=== PATIENT | male | born 1940 | race Caucasian/White ===

== ENCOUNTER 2024-02-02 10:54 | Emergency (ER) | payer OTHER, SELFPAY ==
[2024-02-02 10:59] VITALS: BP 114/79; PULSE 76; RESP 20; TEMP 36.6; O2SAT 98
--- NOTE | 2024-02-02 11:04 | ECG_ITS ---
Measurements Intervals [place] Rate: 73 P: 61 [place]: 202 QRS: 39 QRSD: 82 T: -83 QT: 388 QTc: 429 Interpretive Statements SINUS RHYTHM NONSPECIFIC ST & T-WAVE ABNORMALITY NO PREVIOUS ECG AVAILABLE FOR COMPARISON Electronically Signed On 02-02-2024 12:55:25 CDT by Ilana Chaney M.D.
[2024-02-02 11:41] LABS: Basophils Percent Auto 0.4 % (0.2-1.2); Eosinophils Absolute Auto 0.1 K/mm3 (0-0.3); Hematocrit 39.2 % (42.0-52.0); Hemoglobin 13.6 g/dL (14.0-18.0); Immature Granulocyte Absolute 0.03 K/mm3 (0.00-0.031); Immature Granulocyte Percent A 0.4 % (0-0.5); Lymphocytes Percent Auto 10.5 % (18.3-44.2); Mean Corpuscular HGB Conc 34.7 g/dl (32-36); Mean Corpuscular Volume 89.3 fl (80-100); Mean Platelet Volume 11.3 fl (7.4-10.4); Monocytes Absolute Auto 0.6 K/mm3 (0.1-0.6); Monocytes Percent Auto 7.3 % (2.6-8.5); Neutrophils Absolute Auto 6.1 K/mm3 (1.3-6.7); Neutrophils Percent Auto 80.4 % (45.5-73.1); Platelet Count Result 159 k/mm3 (150-375); Red Blood Count 4.39 M/mm3 (4.6-6.20); Red Cell Distribution Width 11.9 % (11.5-14.5); White Blood Count 7.6 K/mm3 (4.5-10.0)
[2024-02-02 11:48] VITALS: BP 112/65; BP 119/65; BP 96/67; PULSE 74; PULSE 80; PULSE 83
[2024-02-02 11:54] LABS: Alanine Aminotransferase 22 U/L (6-50); Alkaline Phosphatase 122 U/L (38-126); Anion Gap 7 mmol/L (4-12); Aspartate Amino Transferase 27 U/L (17-59); Bilirubin,Total 0.4 mg/dL (0.2-1.3); Blood Urea Nitrogen 22 mg/dL (9-20); Calcium 9.5 mg/dL (8.4-10.2); Carbon Dioxide 23 mmol/L (22-30); Chloride 107 mmol/L (98-107); Estimated CRCL calculation 39 ml/min; Estimated Glomerular Filt Rate 48; Glucose 168 mg/dL (65-110); Potassium 4.3 mmol/L (3.4-5.0); Sodium 137 mmol/L (137-145)
[2024-02-02] MEDS: SODIUM CHLORIDE 0.9% IV 1,000 ML 999 ML IV CONT (12:18)
[2024-02-02 12:20] VITALS: BP 111/89; PULSE 68; RESP 14; O2SAT 100
--- NOTE | 2024-02-02 12:56 | ED.DIZZY ---
HPI - Dizziness General Chief Complaint: Syncope Stated Complaint: dizzy Time Seen by Provider: 02/02/24 11:17 History of Present Illness HPI Narrative: Patient is an 83-year-old male who presents ER after having episodes dizziness. Worse when bending over and standing straight up. He gets lightheaded. It is not spinning. No nausea or vomiting. He had something similar when he had an episode of atrial fibrillation in the past. He is anticoagulated and compliant on medications. He is in a sinus rhythm here. No difficulty hearing. No fevers or chills or sweats. Does not believe he is dehydrated as he has been eating normally. Related Data Allergies Allergy/AdvReac Type Severity Reaction Status Date / Time Penicillins Allergy Mild Verified 03/31/11 11:25 Review of Systems Review of Systems: All systems reviewed & are unremarkable except as noted in HPI and below Constitutional: Constitutional: Reports no additional constitutional complaints ENT: Reports system reviewed and no additional complaints, except as documented Cardiovascular: Cardiovascular: Reports no additional cardiovascular complaints Respiratory: Respiratory: Reports no additional respiratory complaints Gastrointestinal: Gastrointestinal: Reports no additional gastrointestinal complaints Neurologic: Reports dizziness, Denies syncope, Denies headache(s), Denies focal weakness and Denies numbness PMFSH Past Medical History Medical History (Updated 02/02/24 @ 13:59 by Sherman Schwartz MD) Atrial fibrillation BPH (benign prostatic hyperplasia) Hyperlipidemia Exam Narrative: GENERAL: Well-appearing, well-nourished, and in no acute distress. HEAD: Normocephalic, atraumatic. EYES: PERRL and EOMI. ENT: Mucous membranes moist. normal TMs, there is cerumen impaction that was removed from left ear canal. NECK: Supple. CHEST: Clear to auscultation. No respiratory distress. HEART: Regular rate and rhythm. Normal peripheral pulses. ABDOMEN: Soft, nontender, nondistended. EXTREMITIES: Normal range of motion. No edema. SKIN: Warm, dry, no rash. NEURO: Alert and oriented x3. PSYCH: Normal mood and affect. Course Course Emergency Course: patient feels improved after IV fluid. Orthostatics normalized. Discharge home. Vital Signs Vital signs: Vital Signs Temperature 98 F 02/02/24 10:59 Pulse Rate 76 02/02/24 10:59 Respiratory Rate 20 02/02/24 10:59 Blood Pressure 114/79 02/02/24 10:59 Pulse Oximetry 98 02/02/24 10:59 Temperature 98 F 02/02/24 10:59 Pulse Rate 68 02/02/24 13:44 Respiratory Rate 14 02/02/24 12:20 Blood Pressure 122/72 02/02/24 13:44 Pulse Oximetry 100 02/02/24 12:20 MDM - Dizziness Lab Data 02/02/24 11:32 02/02/24 11:32 Labs: Lab Results 02/02/24 Range/Units 11:32 WBC 7.6 (4.5-10.0) K/mm3 RBC 4.39 L (4.6-6.20) M/mm3 Hgb 13.6 L (14.0-18.0) g/dL Hct 39.2 L (42.0-52.0) % MCV 89.3 (80-100) fl MCH 31.0 (26-34) pg MCHC 34.7 (32-36) g/dl RDW 11.9 (11.5-14.5) % Plt Count 159 (150-375) k/mm3 MPV 11.3 H (7.4-10.4) fl Immature Gran % (Auto) 0.4 (0-0.5) % Neut % (Auto) 80.4 H (45.5-73.1) % Lymph % (Auto) 10.5 L (18.3-44.2) % [place] % (Auto) 7.3 (2.6-8.5) % Eos % (Auto) 1.0 (0-4.4) % Baso % (Auto) 0.4 (0.2-1.2) % Lymph # (Auto) 0.80 L (0.9-3.2) K/mm3 [place] # (Auto) 0.6 (0.1-0.6) K/mm3 Eos # (Auto) 0.1 (0-0.3) K/mm3 Baso # (Auto) 0.0 (0.0-0.1) K/mm3 Abs Immat Gran (auto) 0.03 (0.00-0.031) K/mm3 Absolute Neuts (auto) 6.1 (1.3-6.7) K/mm3 Absolute Nucleated RBC 0.000 (0.0-0.012) K/mm3 Nucleated RBC % 0.0 (0.0-0.2) % Sodium 137 (137-145) mmol/L Potassium 4.3 (3.4-5.0) mmol/L Chloride 107 (98-107) mmol/L Carbon Dioxide 23 (22-30) mmol/L Anion Gap 7 (4-12) mmol/L BUN 22 H (9-20) mg/dL Creatinine 1.40 H (0.7-1.3) mg/dL Estim Creat Clear Calc 39 ml/min Es
[2024-02-02 13:42] VITALS: BP 126/72; PULSE 64
[2024-02-02 13:43] VITALS: BP 118/72; PULSE 69
[2024-02-02 13:44] VITALS: BP 122/72; PULSE 68
== END 2024-02-02 14:06 | disposition home or self-care (01) ==
PROVIDERS: Emergency Provider Emergency Medicine
DX: R42 Dizziness and giddiness (principal); I48.91 Unspecified atrial fibrillation; E78.5 Hyperlipidemia, unspecified; N40.0 Benign prostatic hyperplasia without lower urinary tract symptoms; R94.31 Abnormal electrocardiogram [ECG] [EKG]
CPT/HCPCS: 36415; 80053; 85025; 93005; 96360; 99284; J7030

== ENCOUNTER 2024-06-11 22:13 | Observation (INO) | payer OTHER, SELFPAY ==
--- NOTE | ~2024-06-11 | XR_ITS ---
EXAMINATION: XR chest 2V Exam Date/Time: 06/11/2024 23:05 CDT HISTORY: unwell WEAKNESS HX OF AFIB Comparison: None. RESULT: Lines, tubes, and devices: None. Lungs and pleura: Senescent changes, calcified left lower lobe granuloma, otherwise clear. Cardiomediastinal silhouette: Unremarkable. Other: No acute osseous or upper abdominal finding. IMPRESSION: No acute cardiopulmonary process. Reviewed, dictated and finalized at location K.
--- NOTE | 2024-06-11 22:48 | ECG_ITS ---
Test Date: 2024-06-11 22:50:25 Measurements Intervals [place] Rate: 108 P: 0 [place]: 0 QRS: 45 QRSD: 74 T: -41 QT: 309 QTc: 416 Interpretive Statements ATRIAL FIBRILLATION WITH RAPID VENTRICULAR RESPONSE NONSPECIFIC ST & T-WAVE ABNORMALITY No previous ECG available for comparison Electronically Signed On 06-12-2024 11:58:26 CDT by Ilana Chaney M.D.
[2024-06-11 22:53] VITALS: BP 142/87; PULSE 48; RESP 16; TEMP 36.8; O2SAT 99
[2024-06-11 22:54] VITALS: PULSE 108; PULSE 48
--- NOTE | 2024-06-11 22:54 | PC.NURSE ---
Pt HR ranging from high 30s to 1teens. Documented in VS. Known hx of afib. EDP Dr. Connell made aware.
[2024-06-11 23:13] LABS: Add Urine Microscopic? YES; Appearance Urine Turbid (Clear); Bacteria Urine 4+ /hpf; Bilirubin Urine Negative (Negative); Blood Urine 1+ (Negative); Color Urine Yellow (Yellow); Glucose Urine UA Negative (Negative); Ketones Urine Negative (Negative); Leukocyte Esterase Ur 3+ LEU/UL (Negative); Nitrate Urine Positive (Negative); Non Pathogenic Casts 0-2; Protein Urine Negative (Negative); RBC Urine 0-2 /hpf (0-2); Specific Grav Ur 1.013 (1.001-1.035); Squamous Epithelial Cell Urine None Seen /hpf (Few); WBC Urine >100 /hpf (0-3); pH Urine 6.5 (5.0-9.0)
[2024-06-11 23:16] LABS: Basophils Percent Auto 0.3 % (0.2-1.2); Eosinophils Absolute Auto 0.2 K/mm3 (0-0.3); Eosinophils Percent Auto 2.8 % (0-4.4); Hematocrit 37.8 % (42.0-52.0); Hemoglobin 12.9 g/dL (14.0-18.0); Immature Granulocyte Absolute 0.02 K/mm3 (0.00-0.031); Immature Granulocyte Percent A 0.3 % (0-0.5); Lymphocytes Absolute Auto 1.64 K/mm3 (0.9-3.2); Lymphocytes Percent Auto 23.9 % (18.3-44.2); Mean Corpuscular HGB Conc 34.1 g/dl (32-36); Mean Corpuscular Volume 90.9 fl (80-100); Mean Platelet Volume 11.4 fl (7.4-10.4); Monocytes Absolute Auto 0.8 K/mm3 (0.1-0.6); Monocytes Percent Auto 10.9 % (2.6-8.5); Neutrophils Absolute Auto 4.3 K/mm3 (1.3-6.7); Neutrophils Percent Auto 61.8 % (45.5-73.1); Platelet Count Result 156 k/mm3 (150-375); Red Blood Count 4.16 M/mm3 (4.6-6.20); Red Cell Distribution Width 12.1 % (11.5-14.5); White Blood Count 6.9 K/mm3 (4.5-10.0)
[2024-06-11 23:27] LABS: INR 1.2; Prothrombin Time 15.3 Seconds (11.1-14.7)
[2024-06-11 23:28] LABS: Partial Thromboplastin Time 27.7 Seconds (22.3-36.8)
[2024-06-11 23:30] LABS: Alanine Aminotransferase 20 U/L (6-50); Alkaline Phosphatase 140 U/L (38-126); Anion Gap 9 mmol/L (4-12); Aspartate Amino Transferase 28 U/L (17-59); Bilirubin,Total 0.4 mg/dL (0.2-1.3); Blood Urea Nitrogen 26 mg/dL (9-20); Calcium 8.6 mg/dL (8.4-10.2); Carbon Dioxide 23 mmol/L (22-30); Chloride 108 mmol/L (98-107); Estimated CRCL calculation 46 ml/min; Estimated Glomerular Filt Rate 58; Glucose 134 mg/dL (65-110); Lipase 135 U/L (23-300); Potassium 3.9 mmol/L (3.4-5.0); Sodium 140 mmol/L (137-145)
[2024-06-11 23:42] LABS: Troponin I 0.014 ng/mL (0.000-0.034)
[2024-06-12] VITALS (27 sets, daily range): BP systolic 117–157; BP diastolic 65–113; PULSE 63–142; RESP 15–24; TEMP 36.1–36.8; O2SAT 95–100
[2024-06-12] MEDS: cefTRIAXone 2 GM/NS 100 ML 2 GM/100 ML BAG IVPB (00:37)
[2024-06-12] MEDS: METOPROLOL TARTRATE INJ 5 MG/5 ML VIAL IV PUSH ×2 (00:37→03:41)
[2024-06-12] MEDS: LACTATED RINGERS 1,000 ML 999 ML IV CONT ×2 (00:59→05:24)
--- NOTE | 2024-06-12 02:33 | ED.RECABL ---
HPI - Recheck/Abnormal Lab/Rx General Chief Complaint: Recheck/Abnormal Lab/Rx Stated Complaint: high blood pressure, dont feel good Time Seen by Provider: 06/12/24 00:05 History of Present Illness HPI narrative: Patient states that he has not been feeling very well today, denies any pain anywhere, but he did check his blood pressure and looked high so came into the hospital. He does have history of AFib and is already on anticoagulation and rate limiting medication. Related Data Allergies Allergy/AdvReac Type Severity Reaction Status Date / Time Penicillins Allergy Mild Verified 03/31/11 11:25 Review of Systems Review of Systems: All systems reviewed & are unremarkable except as noted in HPI and below [facility] Past Medical History Medical History (Updated 06/12/24 @ 00:33 by Brittni Connell MD) Atrial fibrillation BPH (benign prostatic hyperplasia) Hyperlipidemia Exam Narrative: EXAMINATION OF ORGAN SYSTEMS/BODY AREAS: Constitutional: Vital signs per nursing GENERAL: Appears tired HEAD: Normal with no signs of head trauma. EYES: EOMI, conjunctiva normal ENT: Hearing grossly intact LUNGS: Nonlabored breathing. HEART: Irregular; tachycardic ABD: [Soft], [nontender to palpation] EXT: Normal range of motion SKIN: [No rashes or lesions.] NEURO: [Alert and oriented x 3. No gross focal sensory or strength deficits.] PSYCH: Normal affect Course Vital Signs Vital signs: Vital Signs Temperature 98.2 F 06/11/24 22:53 Pulse Rate 48 L 06/11/24 22:53 Respiratory Rate 16 06/11/24 22:53 Blood Pressure 142/87 H 06/11/24 22:53 Pulse Oximetry 99 06/11/24 22:53 Oxygen Delivery Room Air 06/11/24 22:53 Temperature 98.2 F 06/11/24 22:53 Pulse Rate 134 H 06/12/24 03:41 Respiratory Rate 18 06/12/24 03:38 Blood Pressure 154/113 H 06/12/24 03:38 Pulse Oximetry 98 06/12/24 03:38 Oxygen Delivery Room Air 06/11/24 22:53 MDM - Recheck/Abnormal Lab/Rx MDM Narrative Medical decision making narrative: Patient presenting with not feeling well, on exam he is in AFib with RVR, does appear tired. I did place the patient on time a tray when he was brought back from triage and he was having heart rate in the 140s. He is started on IV fluids and given a dose of IV metoprolol which did immediately improved his heart rate to the 80s. Labs showing urinary tract infection which I suspect may be why he does not feel well and why he is in AFib with RVR, he is given a dose of antibiotics, I do feel he should be admitted at this time and patient agreeable to this plan. Hospitalist agreeable to admission. Repeat EKG at 3:29 a.m. on my independent interpretation shows atrial flutter with rate 88, normal QRS and QTC and axis, no ST elevations. Lab Data 06/11/24 23:07 06/11/24 23:07 Labs: Lab Results 06/11/24 06/11/24 Range/Units 23:03 23:07 WBC 6.9 (4.5-10.0) K/mm3 RBC 4.16 L (4.6-6.20) M/mm3 Hgb 12.9 L (14.0-18.0) g/dL Hct 37.8 L (42.0-52.0) % MCV 90.9 (80-100) fl MCH 31.0 (26-34) pg MCHC 34.1 (32-36) g/dl RDW 12.1 (11.5-14.5) % Plt Count 156 (150-375) k/mm3 MPV 11.4 H (7.4-10.4) fl Immature Gran % (Auto) 0.3 (0-0.5) % Neut % (Auto) 61.8 (45.5-73.1) % Lymph % (Auto) 23.9 (18.3-44.2) % [place] % (Auto) 10.9 H (2.6-8.5) % Eos % (Auto) 2.8 (0-4.4) % Baso % (Auto) 0.3 (0.2-1.2) % Lymph # (Auto) 1.64 (0.9-3.2) K/mm3 [place] # (Auto) 0.8 H (0.1-0.6) K/mm3 Eos # (Auto) 0.2 (0-0.3) K/mm3 Baso # (Auto) 0.0 (0.0-0.1) K/mm3 Abs Immat Gran (auto) 0.02 (0.00-0.031) K/mm3 Absolute Neuts (auto) 4.3 (1.3-6.7) K/mm3 Absolute Nucleated RBC 0.000 (0.0-0.012) K/mm3 Nucleated RBC % 0.0 (0.0-0.2) % PT 15.3 H (11.1-14.7) Seconds INR 1.2 APTT 27.7 (22.3-36.8) Seconds Sodium 140 (137-145) mmol/L Potassium 3.9 (3.4-5.0) mmol/L Chloride 108 H (98-107) mmol/L Carbon
--- NOTE | 2024-06-12 03:29 | ECG_ITS ---
Test Date: 2024-06-12 03:29:07 Measurements Intervals [place] Rate: 88 P: 0 [place]: 0 QRS: 50 QRSD: 80 T: -41 QT: 344 QTc: 418 Interpretive Statements ATRIAL FIBRILLATION NONSPECIFIC ST & T-WAVE ABNORMALITY Compared to ECG 06/11/2024 22:50:25 NO SIGNIFICANT CHANGES Electronically Signed On 06-14-2024 09:45:47 CDT by Ilana Chaney M.D.
[2024-06-12] MEDS: METOPROLOL TARTRATE 25 MG TABLET PO (03:41)
--- NOTE | 2024-06-12 03:56 | ADMGEN ---
This patient, Parviz Barger, was admitted to IMU Room 200-01. Patient/family oriented to hospital policies and general routines including ID bracelet, bed and alarms, visiting hours, pain management, procedures, bathroom and other care routines, personal items, smoking policy, room service/diet, and visiting hours. Information on how to activate the Rapid Response Team has been discussed. Patient/Family are encouraged to report perceived risks to care and to ask questions if they do not understand what they are told or what they should do.
[2024-06-12 04:24] LABS: Troponin I 0.018 ng/mL (0.000-0.034)
[2024-06-12 05:48] LABS: Troponin I 0.018 ng/mL (0.000-0.034)
--- NOTE | 2024-06-12 07:15 | PM.IMHP ---
H&P: HPI History of Present Illness Date/Time: 06/12/24 07:15 Chief Complaint: Patient is an 83-year-old male past medical history of AFib presented to the ER due to high blood pressure and weakness. During the examination patient was oriented x3. Patient reports that he has AFib and he is on a rate control medication but was not able to recall also patient is on anticoagulant Eliquis 5 mg b.i.d.. Analysis shows positive for nitrite and leukocyte esterase. Even the patient denies any symptoms of dysuria fever chills or flank pain his weakness might be due to from the infection from the urinary tract. Patient has been started empirically on ceftriaxone pending urine culture. Today patient was added metoprolol 12.5 mg b.i.d. for his rate control and we will follow up with his heart rate and his blood pressure. Review of Systems Review of Systems: All systems reviewed & are unremarkable except as noted in HPI and below PMFSH Past Medical History Medical History (Updated 06/12/24 @ 00:33 by Brittni Connell MD) Atrial fibrillation BPH (benign prostatic hyperplasia) Hyperlipidemia Family History Family History (Updated 06/12/24 @ 04:21 by Jazmyn Yi RN) Mother Brain aneurysm Father COPD (chronic obstructive pulmonary disease) Social History Social History Smoking status: Never smoker Alcohol intake: never Substance use: never Do You Feel Safe in your Home?: Yes Lack of Transportation: No Lack of Food: Never True Current Housing: I Have Housing Concerned About Future Housing: No Difficulty Paying Gas/Electric Bills: No Difficulty Paying for Meds: No Currently Unemployed: No Education: Grade School Difficulty w/ Childcare or Family Care: No Spiritual care concerns: No Meds Home Medications and Allergies Home Medications Medication Instructions Recorded Confirmed Type apixaban 5 mg tablet (Eliquis) 5 mg PO BID 06/12/24 06/12/24 History atorvastatin 40 mg tablet 40 mg PO DAILY 06/12/24 06/12/24 History tamsulosin 0.4 mg capsule 0.4 mg PO DAILY 06/12/24 06/12/24 History Allergies Allergy/AdvReac Type Severity Reaction Status Date / Time Penicillins Allergy Mild Verified 03/31/11 11:25 Vital Signs Vital Signs - 24 hr 06/11/24 22:53 06/11/24 22:54 06/11/24 22:54 Temperature 98.2 F Pulse Rate 48 L 48 L 108 H Respiratory Rate 16 Blood Pressure 142/87 H Pulse Oximetry 99 Oxygen Delivery Room Air 06/12/24 00:22 06/12/24 00:37 06/12/24 00:50 Temperature Pulse Rate 142 H 121 H 92 Respiratory Rate 20 19 Blood Pressure 132/109 H 153/86 H Pulse Oximetry 100 98 Oxygen Delivery 06/12/24 02:02 06/12/24 00:23 06/12/24 00:45 Temperature Pulse Rate 82 126 H 92 Respiratory Rate 17 Blood Pressure 153/89 H Pulse Oximetry 98 Oxygen Delivery 06/12/24 02:00 06/12/24 02:55 06/12/24 03:21 Temperature Pulse Rate 75 71 112 H Respiratory Rate 15 Blood Pressure 150/85 H Pulse Oximetry 98 Oxygen Delivery 06/12/24 03:21 06/12/24 03:28 06/12/24 03:41 Temperature Pulse Rate 112 H 121 H 134 H Respiratory Rate 19 17 Blood Pressure 146/93 H 146/93 H Pulse Oximetry 99 99 Oxygen Delivery 06/12/24 03:41 06/12/24 03:38 06/12/24 04:00 Temperature 97 F L Pulse Rate 134 H 134 H 118 H Respiratory Rate 18 18 Blood Pressure 154/113 H 131/96 H Pulse Oximetry 98 100 Oxygen Delivery 06/12/24 04:00 06/12/24 04:00 06/12/24 06:27 Temperature Pulse Rate 118 H 112 H 74 Respiratory Rate 18 Blood Pressure Pulse Oximetry 100 Oxygen Delivery Room Air Exam Narrative: EXAMINATION OF ORGAN SYSTEMS/BODY AREAS: Constitutional: Vital signs per nursing GENERAL: Appears tired HEAD: Normal with no signs of head trauma. EYES: EOMI, conjunctiva normal ENT: Hearing grossly intact LUNGS: Nonlabored breathing. HEART: Irregular; tachycardic ABD: [Soft], [nontender
[2024-06-12] MEDS: ATORVASTATIN 40 MG TABLET PO (09:28)
[2024-06-12] MEDS: METOPROLOL TARTRATE 12.5 MG TABLET PO ×2 (09:28→20:15)
[2024-06-12] MEDS: APIXABAN 5 MG TABLET PO ×2 (09:28→20:15)
[2024-06-12] MEDS: TAMSULOSIN HCL 0.4 MG CAPSULE PO (09:28)
[2024-06-13] VITALS (10 sets, daily range): BP systolic 118–138; BP diastolic 64–79; PULSE 55–70; RESP 16–20; TEMP 36.3–36.7; O2SAT 98–100
[2024-06-13 04:18] LABS: Hemoglobin 11.8 g/dL (14.0-18.0); Mean Corpuscular HGB Conc 34.7 g/dl (32-36); Mean Corpuscular Hemoglobin 31.6 pg (26-34); Mean Corpuscular Volume 90.9 fl (80-100); Mean Platelet Volume 11.9 fl (7.4-10.4); Platelet Count Result 145 k/mm3 (150-375); Red Blood Count 3.74 M/mm3 (4.6-6.20); Red Cell Distribution Width 12.1 % (11.5-14.5); White Blood Count 7.7 K/mm3 (4.5-10.0)
[2024-06-13 04:29] LABS: Alanine Aminotransferase 17 U/L (6-50); Albumin Level 3.2 g/dL (3.5-5.1); Alkaline Phosphatase 105 U/L (38-126); Anion Gap 7 mmol/L (4-12); Aspartate Amino Transferase 19 U/L (17-59); Bilirubin,Total 0.4 mg/dL (0.2-1.3); Blood Urea Nitrogen 19 mg/dL (9-20); Calcium 8.4 mg/dL (8.4-10.2); Carbon Dioxide 24 mmol/L (22-30); Chloride 107 mmol/L (98-107); Estimated CRCL calculation 54 ml/min; Estimated Glomerular Filt Rate > 60; Glucose 104 mg/dL (65-110); Potassium 3.7 mmol/L (3.4-5.0); Sodium 138 mmol/L (137-145)
--- NOTE | 2024-06-13 07:29 | PC.NURSE ---
Bedside shift report. Denies any needs at this time. compliance monitor remains on and functioning at this time. No acute distress noted. Plan of care discussed, including medications. Denies questions at this time, verbalizes understanding.
[2024-06-13] MEDS: ATORVASTATIN 40 MG TABLET PO (08:28)
[2024-06-13] MEDS: METOPROLOL TARTRATE 12.5 MG TABLET PO (08:28)
[2024-06-13] MEDS: TAMSULOSIN HCL 0.4 MG CAPSULE PO (08:28)
[2024-06-13] MEDS: APIXABAN 5 MG TABLET PO (08:35)
--- NOTE | 2024-06-13 13:39 | PM.DS ---
DS: Admitting Diagnosis Discharge Date 06/13/24 Admitting Diagnosis High blood pressure and weakness DS: Discharge Diagnosis Discharge Diagnosis (1) Atrial fibrillation with RVR: Code(s): I48.91 - Unspecified atrial fibrillation Status: Acute (2) Acute UTI: Code(s): N39.0 - Urinary tract infection, site not specified Status: Acute DS: Summary Hospital Course Reason for hospitalization: 83yo male with pAFib and BPH here for hihg BP and weakness. Please see H&P for details. Hospital Course: Patient noted to have AFib with RVR on admission. He was started on IV fluids and given metoprolol IV once with improvement. EKG showed AFib with RVR (108) with nonspecific ST and T wave changes. CXR was clear. WBC and platelet cont normal. Hgb mildly low at 13. BUN 26 and Cr 1.2 that improved with IV fluids. Troponin negative x 3. TSH normal. UA is consistent with UTI. UCx collected. Rocephin started. UCx grew klebsiella that was relatively jacome-sensitive. he converted to normal sinus. Oral metoprolol started. He overall did well and was able to be discharged on 06/13/24. Status at Discharge Cognitive/behavioral status at discharge: stable Time Spent with Patient Time attestation: Total time spent providing and/or coordinating discharge services: 34 minutes Time spent: Greater than 30 minutes Exam Narrative: AF 98.1 124/79 56 16 98% ra Gen - NARD Chest - CTA bilaterally, nml RR. more protuberant right clavicle without erythema or pain CV - RRR S1/S2. Tele showing NSR Abd - Soft, NT/ND, Positive BS Ext - No pedal edema. known right ankle deformity. 2+ DP bilaterally. Psych - Nml mood and affect Skin - Warm and dry DS: Data Data Completed and Pending Labs on day of discharge: Labs from last 24 hours 06/13/24 03:30 WBC 7.7 RBC 3.74 L Hgb 11.8 L Hct 34.0 L MCV 90.9 MCH 31.6 MCHC 34.7 RDW 12.1 Plt Count 145 L MPV 11.9 H Sodium 138 Potassium 3.7 Chloride 107 Carbon Dioxide 24 Anion Gap 7 BUN 19 Creatinine 1.00 Estim Creat Clear Calc 54 Estimated GFR > 60 Glucose 104 Calcium 8.4 Total Bilirubin 0.4 AST 19 ALT 17 Alkaline Phosphatase 105 Total Protein 6.0 L Albumin 3.2 L TSH (Reflex) 2.350 Discharge Plan Discharge Attending physician on discharge: Marino Valadez Discharging Clinician: Marino Valadez Anticipated Discharge Date/Time: 06/13/24 13:50 Patient Disposition: Home, Self-Care Activity: as tolerated Diet: heart healthy Discharge Instructions: Check blood pressure 1 to 2 times a day. Record and bring into your doctor for review. Call your doctor if your blood pressure is greater than 180/110 or less than 90/45. Please complete your antibiotic course even if you are starting to feel well. Start the antibiotic on 06/14/24 and take it every 12 hours for 3 days. Take precautions to avoid falls. Rise slowly from a lying or sitting position. Pause before standing or walking. Contact your doctor or call 911 and come to the Emergency Room if you have fevers, weakness, urinary symptoms or other worrisome symptoms. Avoid NSAIDs (ibuprofen, naproxen, Aleve). Tylenol is safe to take. Follow-up with your primary care provider in 1-2 weeks. Please call for appointment. Thank you for using [facility] for your health care needs. Patient Instructions: Antibiotic Form, Apixaban (By mouth) Stand Alone Forms: General Discharge Information Follow-up/Referrals: UNKNOWN,DOCTOR [Primary Care Provider] - Call for Appointment Discharge Medications: New ciprofloxacin HCl [Cipro] 250 mg tablet 250 mg PO Q12H Qty: 6 0RF Rx Instructions: Start on 06/14/24. metoprolol succinate 25 mg tablet extended release 24 hr 25 mg PO DAILY Qty: 30 1RF Continued atorvastatin 40 mg tablet 40 mg PO DAILY tamsulosin 0.4 mg capsule 0.4 mg PO DAILY Eliquis 5 mg tablet
== END 2024-06-13 14:50 | disposition home or self-care (01) ==
LOC: ANHED 06-12 00:41 → ANHIMU 06-12 04:34
PROVIDERS: General Practice; Admitting Provider Internal Medicine; Emergency Provider Emergency Medicine; Visit Provider Internal Medicine
DX: I48.91 Unspecified atrial fibrillation (principal); N39.0 Urinary tract infection, site not specified; B96.1 Klebsiella pneumoniae [K. pneumoniae] as the cause of diseases classified elsewhere; I10 Essential (primary) hypertension; E78.5 Hyperlipidemia, unspecified; N40.0 Benign prostatic hyperplasia without lower urinary tract symptoms; Z79.01 Long term (current) use of anticoagulants
CPT/HCPCS: 36415; 71046; 80053; 81001; 83690; 84443; 84484; 85025; 85027; 85610; 85730; 87077; 87086; 87088; 87186; 93005; 96361; 96365; 96375; 96376; 99285; A9270; G0378; J0696; J7120

== ENCOUNTER 2025-01-16 13:57 | Emergency (ER) | payer SELFPAY ==
[2025-01-16 14:07] VITALS: BP 108/60; PULSE 61; RESP 16; TEMP 36.4; O2SAT 98
--- OUTSIDE RECORDS SUMMARY | 2025-01-16 15:35 | XMS_ITS | Clinical Summary ---
Author Organization [facility] [address] Address [address] [place] [address] Care Team Providers Care Tube Maker Name Role Phone Sanchez Cueva MD Primary Care Provider [phone] Allergies Active Allergy Reactions Criticality Noted Date Comments Penicillin Rash Low 07/27/2017 Medications atorvastatin (LIPITOR) 40 mg tablet Take 1 Tablet (40 mg) by mouth daily at bedtime. 30 Tablet 3 Active tamsulosin (FLOMAX) 0.4 mg capsule TAKE 1 CAPSULE BY MOUTH EVERY DAY 30 MINUTES AFTER THE SAME MEAL 3 Active multivit-min/FA/l ycopen/lutein (CENTRUM SILVER MEN ORAL) Take by mouth. Active ciprofloxacin HCl (CIPRO) 250 mg tablet Take 250 mg by mouth 2 times daily. Active metoprolol succinate (TOPROL XL) 25 mg Extended Release 24 hour tablet Take 1 Tablet by mouth daily. 4 Active amiodarone (CORDARONE) 200 mg tablet Take 1 Tablet (200 mg) by mouth daily. 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 01/06/2023 Atrial flutter with rapid ventricular response 1 11/12/2021 Atrial fibrillation 09/12/2022 Overview (09/13/2022): Added automatically from request for surgery [id number] Immunizations Immunization Administration Dates Next Due (PREVNAR 13)(6 WKS UP) PNEUM OCOCCAL CONJUGATE (PCV13) 0.5 ML, IM 01/22/2015 (SHINGRIX)(50 YRS UP) ZOSTER VACCINE RECOMBINANT, 0.5 ML, IM 01/07/2016 INFLUENZA VACCINE QUADRIVALENT 6 MOS UP PF IM Influenza Vaccine Tri Split 4+ Im 09/04/2018 Family History Medical History Relation Name Comments Emphysema Father Unknown Maternal Grandfather Unknown Maternal Grandmother Cancer Mother brain tumor Stroke Mother Unknown Paternal Grandfather Unknown Paternal Grandmother Healthy Sister Breast Cancer Neg Hx Colon Cancer Neg Hx Relation Name Status Comments Father Maternal Grandfather Maternal Grandmother Mother cerebral aneury sm Paternal Grandfather Paternal Grandmother Sister Social History Tobacco Use Types Packs/Day Years Used Date Smoking Tobacco: Never Smokeless Tobacco: Never Tobacco Cessation:Counseling Given: Not Answered Alcohol Use Standard Drinks/Week Comments Not Currently 0 (1 standard drink = 0.6 oz pur e alcohol) Feeling Safe Answer Date Recorded Are you in a relationship wi th someone who hurts you emotionally and/or physically? 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 Not on file Not on file Not on file Last Filed Vital Signs Vital Sign Reading Time Taken Comments Blood Pressure 130/78 06/15/2024 2:35 PM CDT Pulse 52 06/15/2024 2:35 PM CDT Temperature 36.9 C (98.4 F) 05/17/2023 9:48 AM CDT Respiratory Rate 20 05/17/2023 9:48 AM CDT Oxygen Saturation 99% 05/17/2023 9:48 AM CDT Inhaled Oxygen Concentration - - Weight 89.4 kg (197 lb) 06/15/2024 2:35 PM CDT Height 182.9 cm (6') 01/27/2024 1:07 PM CDT Body Mass Index 26.72 01/27/2024 1:07 PM CDT Plan of Treatment Health Maintenance Due Date Last Done Comments DTAP/TDAP/TD VACCINES (1 - Tdap) 1959 RSV VACCINE (60+ or ) (1 - 1-dose 75+ series) 2015 PNEUMOCOCCAL VACCINE 50+ YEA RS (2 of 2 - PPSV23) 01/23/2016 01/22/2015 ZOSTER VACCINE (2 of 2) 03/03/2016 01/07/2016 INFLUENZA VACCINE (#1) 2024 09/04/2018, 2016 [place]) Preventative Visit/Annual Wellness Visit 10/31/2024 04/18/2024, 04/13/2023, 02/17/2022, Additional history exists COLORECTAL SCREENING Discontinued 03/05/2019, 03/05/2019, 03/05/2019, Additional history exists Colorectal Cancer Screening Discontinued FIT-DNA Q 3 years Discontinued FIT/FOBT Q 1 year Discontinued Flex Sig/CT Colonography Q 5 years Discontinued Procedures Procedure Name Priority Date/Time Associated Diagnosis Comments COLONOSCOPY REPORT 03/05/2019 10 :49 AM CDT from Last 3 Months or Most Recently Relevant to Health Maintenance Results * COLONOSCOPY REPORT (03/05/2019 10:49 AM CDT) Narrative Procedure Note Wendy Scott MD - 03/05/2019 10:49 AM CDT [facility] Endoscopy Patient Name: Parviz Barger Procedure Date: 03/05/2019 Date of : 1940 Admit Type: Outpatient Attending MD: Wendy Scott MD Procedure: Colonoscopy Indications: Screening for colorectal malignant neoplasm, This is the patient's first colonoscopy Providers: Wendy Scott MD Referring MD: Sanchez Cueva MD Medicines: Monitored Anesthesia Care Complications: No immediate complications. Procedure: Informed consent was obtained for the procedure, including moderate sedation after risks were discussed. Based on the pre-procedure assessment, including review of the patient's medical history, medications, allergies, and review of systems, the patient was deemed to be an appropriate candidate for sedation. A timeout was performed. Continuous ECG monitoring, pulse oximetry, blood pressure monitoring, and direct observation were performed. The Colonoscope was introduced through the anus and advanced to the terminal ileum. The colonoscopy was performed without difficulty. The patient tolerated the procedure well. The quality of the bowel preparation was good. Findings: The terminal ileum appeared normal. The colon (entire examined portion) appeared normal. Internal hemorrhoids were found during retroflexion. The hemorrhoids were Grade I (internal hemorrhoids that do not prolapse). Impression: - The examined portion of the ileum was normal. - The entire examined colon is normal. - Internal hemorrhoids. - No specimens collected. Recommendation: - Patient has a contact number available for emergencies. The signs and symptoms of potential delayed complications were discussed with the patient. Return to normal activities tomorrow. Written discharge instructions were provided to the patient. - Repeat colonoscopy in 10 years for screening purposes. Procedure Code(s): --- Professional --- 14175, Colonoscopy, flexible; diagnostic, including collection of specimen(s) by brushing or washing, when performed (separate procedure) CPT copyright 2016 [employer]. All rights reserved. The codes documented in this report are preliminary and upon long term care administrator review may be revised to meet current compliance requirements. Wendy Scott MD 03/05/2019 10:48:57 AM This report has been signed electronically. Number of Addenda: [id number] [place] [address] Wendy Scott MD GI PROCEDURE ORDERABLES Final Re sult from Last 3 Months or Most Recently Relevant to Health Maintenance Insurance [place] [id number] Advance Directives For more information, please contact: [phone] * Full Code (Latest Code Status on File) Date Activated Date Inactivated Comments 01/07/2023 12:04 AM 01/10/2023 7:53 PM * Full Code Date Activated Date Inactivated Comments 09/27/2022 4:03 PM 09/27/2022 10:13 PM * Full Code Date Activated Date Inactivated Comments 09/12/2022 4:52 PM 09/14/2022 5:33 PM Care Teams Tube Maker Relationship Specialty [place] [address] [address] [address] PCP - General Family Practice 02/26/19
--- OUTSIDE RECORDS SUMMARY | 2025-01-16 15:35 | XMS_ITS | Continuity of Care Document ---
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 Name Role Phone Sanchez Cueva MD Unavailable Unavailable Allergies, Adverse Reactions, Alerts Substance Reaction Status Criticality PENICILLIN Active No Information Medications Medication Instructions Dosage Effective Dates (start - stop) Status Comments trazodone 50 mg tablet take 1 tablet by oral route every day at bedtime 50 MG - Active atorvastatin 40 mg tablet TAKE 1 TABLET BY MOUTH EVERY DAY AT BEDTIME - Active Shingrix (PF) 50 mcg/0.5 mL intramuscular suspension, kit inject 0.5 milliliter by intramuscular route once 50 MCG - Active amiodarone 200 mg tablet take 1 tablet by oral route once per day - Active Arexvy (PF) 120 mcg/0.5 mL IM suspension inject 0.5 milliliter by intramuscular route once 120 MCG - Active Eliquis 5 mg tablet take 1 tablet by ora l route 2 times every day 5 MG - Active Centrum Silver Men 300 mcg-600 mcg-300 mcg tablet 1 tab po QD - Active Procedures Procedure Date OFFICE [id number] BODY MASS INDEX DOCD SYST BP LT 130 MM HG DIAST BP < 80 MM HG Admin influenza virus vac FLU VACC PRSV FREE INC ANTIG COMPREHEN METABOLIC PANEL CMP HEMOGLOBIN A1C HGA1C, GLYCO LIPID PANEL ROUTINE VENIPUNCTURE FALL RISK ASSESSMENT DOC'D PRES/ABSN URINE INCON ASSESS PREVENTATIVE-EST: 65 & OVER BODY MASS INDEX DOCD SYST BP LT 130 MM HG DIAST BP < 80 MM HG Pt inelig neg scrn depres OFFICE [id number] BODY MASS INDEX DOCD SYST BP LT 130 MM HG DIAST BP < 80 MM HG CBC, INC PLATELETS AND DIFFERENTIAL COMPREHEN METABOLIC PANEL CMP 3 HEMOGLOBIN A1C HGA1C, GLYCO LIPID PANEL ROUTINE VENIPUNCTURE FALL RISK ASSESSMENT DOC'D PRES/ABSN URINE INCON ASSESS Pt inelig neg scrn depres Pt inelig neg scrn depres BODY MASS INDEX DOCD SYST BP LT 130 MM HG DIAST BP < 80 MM HG PREVENTATIVE-EST: 65 & OVER [facility] MED/CURRENT MED MERGE Pt inelig neg scrn depres Pt inelig neg scrn depres OFFICE [id number] BODY MASS INDEX DOCD SYST BP LT 130 MM HG DIAST BP < 80 MM HG DSCHRG MED/CURRENT MED MERGE COMPREHEN METABOLIC PANEL CMP 2 HEMOGLOBIN A1C HGA1C, GLYCO LIPID PANEL ROUTINE VENIPUNCTURE OFFICE [id number] BODY MASS INDEX DOCD SYST BP LT 130 MM HG DIAST BP < 80 MM HG DSCHRG MED/CURRENT MED MERGE Transitional Care- First 7 Days Of Disch arge BODY MASS INDEX DOCD SYST BP LT 130 MM HG DIAST BP < 80 MM HG X-RAY SPINE, CERVICAL, 2 Or 3 VIEWS FALL RISK ASSESSMENT DOC'D PRES/ABSN URINE INCON ASSESS Pt inelig neg scrn depres PREVENTATIVE-EST: 65 & OVER BODY MASS INDEX DOCD SYST BP LT 130 MM HG DIAST BP < 80 MM HG CBC, INC PLATELETS AND DIFFERENTIAL COMPREHEN METABOLIC PANEL CMP HEMOGLOBIN A1C HGA1C, GLYCO LIPID PANEL ROUTINE VENIPUNCTURE PSA, TOTAL, SCREENING MEDICARE ONLY OFFICE [id number] BODY MASS INDEX DOCD SYST BP LT 130 MM HG DIAST BP < 80 MM HG OFFICE [id number] BODY MASS INDEX DOCD FALL RISK ASSESSMENT DOC'D PRES/ABSN URINE INCON ASSESS Pt inelig neg scrn depres OFFICE [id number]-[id number] BODY MASS INDEX DOCD SYST BP LT 130 MM HG DIAST BP < 80 MM HG OFFICE [id number]-AGT-[id number] BODY MASS INDEX DOCD SYST BP LT 130 MM HG DIAST BP < 80 MM HG FALL RISK ASSESSMENT DOC'D PRES/ABSN URINE INCON ASSESS Pt inelig neg scrn depres OFFICE [id number] BODY MASS INDEX DOCD SYST BP >= 140 MM HG6 IT DIAST BP 80-89 MM HG Admin influenza virus vac FLU VAC NO PRSV 4 JESS, 0.5mL DOSAGE URINALYSIS, DIPSTICK (UA) - Office Lab O OFFICE [id number] BODY MASS INDEX DOCD SYST BP LT 130 MM HG DIAST BP < 80 MM HG Advance Directives Directive Yes / No Effective Date File Name Life Support Not Answered N/A N/A Intubation Not Answered N/A N/A Antibiotics Not Answered N/A N/A IV Fluid Support Not Answered N/A N/A Tube Feed Not Answered N/A N/A Other Directive N/A N/A WARNING:The information contained in this section is historical and is provided for information only and does not constitute a legal document or any assurance that the information is still accurate. Please verify the information with the leach of the legal document before using it for clinical purposes. Encounters Encounter Description Practice Location Reason(s) For Visit Diagnoses Date Provider Providers Copied on Encounter [facility], [address], [place], [place], [address] , tel: [phone] [facility] Primary [facility] Paroxysmal atrial flutter [address] An[address] [place] [address], [id number] , [place]. tel: [phone] OFFICE [id number]-GFE-USU PAUL [facility], [address], [place], [place], [address] , [place] tel: [phone] [facility] med management (chief complaint) Chronic a-fibMixed hypercholesterole pierre and hypertriglyceride miaChronic systolic heart failurePre-diabet esLong term current use of anticoagulantHist ory of CVA (cerebrovascular accident) 4 Anay Bradford. [address] [facility], [address], [id number] , . tel: [phone] Referring Provider: Sanchez Lopes, [address] [place] [address], [address] . tel:[phone] [facility], [address], [place], [place], [address] , tel: [phone] [facility] Atrial fibrillation, unspecified type 4 Anay Rodriguez [address] [place] [address], [id number] , . tel: [phone] [facility], [address], [place], [place], [address] , tel: [phone] [facility] No Information 4 Anay Bradford. [address] [place] [address], [id number] , [place]. tel: [phone] [facility], [address], [place], [place], [address] , tel: [phone] [facility] Services Mixed hyperlipidemia 4 Anay Rodriguez [address] [place] [address], [id number] , [place]. tel: [phone] Referring Provider: Sanchez Lopes, [address] [place] [address], [address] . 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 [address] [place] [address], [id number] , [place]. tel: [phone] Referring Provider: Sanchez Lopes, [address] [place] [address], [address] . tel:[phone] [facility], [address], [place], [place], [address] , tel: [phone] [facility] Atrial fibrillation, unspecified type 4 Anay Bradford. [address] [place] [address], [id number] , . tel: [phone] OFFICE RULPR-GDI-YSS PAUL [facility], [address], [place], [place], [address] , tel: [phone] [facility] Care [facility] med management (chief complaint) Chronic a-fibHistory of CVA (cerebrovascular accident)Chronic systolic heart failureLong term current use of anticoagulantMixe d hypercholesterole pierre and hypertriglyceride miaEssential hypertension 3 Anay Bradford. [address] [place] [address], [id number] , . tel: [phone] Referring Provider: Sanchez Lopes, [address] [place] [address], [address] . tel:[phone] [facility], [address] [facility], [place], [place], [address] , tel: [phone] [facility] Services Mixed hyperlipidemia 3 Anay Bradford. [address] [place] [address], [id number] , . tel: [phone] Referring Provider: Sanchez Lopes, [address] [place] [address], [address] . tel:[phone] PREVENTATIVE- EST: 65 & OVER [facility], [address] [facility], [place], [place], [address] , tel: [phone] [facility] Patient encounter (chief complaint)p reventive exam (chief complaint) Body mass index [BMI] 26.0-26.9, adultEssential hypertensionChron ic a-fibMixed hypercholesterole pierre and hypertriglyceride miaPrediabetesRec ent urinary tract infectionLong term current use of anticoagulantAnnu al physical examHistory of fallingEncounter for screening for other disorderEncounter for screening for depressionEncount er for examination of blood pressure without abnormal findings 3 Anay Bradford. [address] [place] [address], [address] [place] [address] , . tel: [phone] Referring Provider: Sanchez Lopes, [address] [place] [address], [address] [place] [address] . tel:[phone] [facility], [address], [place], [address] , tel: [phone] [facility] History of CVA (cerebrovascular accident) 3 Anay Bradford. [address] [place] [address], [id number] , . tel: [phone] OFFICE WJBLI-SEB-GJM PAUL [facility], [address], [place], [address] , tel: [phone] [facility] Hospital Follow-Up (chief complaint) Paroxysmal atrial flutterHistory of CVA (cerebrovascular accident)Body mass index [BMI] 26.0-26.9, adult 3 Moshe Sage. [address] [place] [address], [id number] , . tel: [phone] Referring Provider: Sanchez Lopes, [address] [place] [address], [address] . tel:[phone] [facility], [address], [address] , tel: [phone] Care Management No Information 3 Anay Bradford. [address] [place] [address], [id number] , . tel: [phone] Referring Provider: Sanchez Lopes, [address] [place] [address], [address] . tel:[phone] [facility], [address], [place], [place], [address] , tel: [phone] [facility] Atrial flutter, unspecified type 3 Anay Bradford. [address] [place] [address], [address], [id number] , [place]. tel: [phone] [facility], [address], [place], [place], [address] , tel: [phone] [facility]patient Services Mixed hyperlipidemia 2 Anay Bradford. [address] [place] [address], [address], [id number] , [place]. tel: [phone] Referring Provider: Sanchez Lopes, [address] [place] [address], [address] . tel:[phone] OFFICE FWHYL-TWF-QCV PAUL [facility], [address] [place] [address], [id number] , tel: [phone] [facility] Primary [facility] Patient encounter (chief complaint) Chronic systolic heart failurePrediabete sMixed hypercholesterole pierre and hypertriglyceride miaEssential hypertensionChron ic a-fibLong term current use of anticoagulant 2 Anay Bradford. [address] [place] [address], [address], [id number] , [place]. tel: [phone] Referring Provider: Sanchez Lopes, [address] [place] [address], [address] . tel:[phone] Transitional Care- First 7 Days Of Discharge [facility], [address], [place], [place], [address] , tel: [phone] [facility] Patient encounter (chief complaint) Atrial flutter, unspecified typeAtrial fibrillation status post cardioversionPosi tive blood culture 2 Anay Bradford. [address] [place] [address], [address], [id number] , . tel: [phone] Referring Provider: Sanchez Lopes, [address] [place] [address], [address] . tel:[phone] [employer] [facility], [address], [place], [place], [address] , tel: [phone] [facility] Atrial flutter, unspecified type 2 Anay Rodriguez [address] [place] [address], [address], [id number] , . tel: [phone] [employer] [facility], [address], [place], [place], [address] , tel: [phone] [facility] Cervicalgia 2 Anay Rodriguez [address] [place] [address], [address], [id number] , [place]. tel: [phone] Referring Provider: Sanchez Lopes, [address] [place] [address], [address] . tel:[phone] PREVENTATIVE- EST: 65 & OVER [facility], [address] [place] [address], [id number] , tel: [phone] [facility] preventive exam (chief complaint) Body mass index [BMI] 28.0-28.9, adultCervical painAnnual physical examEssential hypertensionMixed hypercholesterole pierre and hypertriglyceride miaPrediabetes 2 Anay Rodriguez [address] [place] [address], [address], [id number] , [place]. tel: [phone] Referring Provider: Sanchez Lopes, [address] [place] [address], [address] . tel:[phone] [employer], [address], [place], [place], [address] , tel: [phone] [facility] Prediabetes Jul-0 1 Anay Rodriguez [address] [place] [address], [address], [id number] , . tel: [phone] Referring Provider: Sanchez Lopes, [address] [place] [address], [address] . tel:[phone] OFFICE JGQCG-FXN-LNN [facility], [address], [place], [place], [address] , tel: [phone] [facility] med management (chief complaint) Pre-diabetesMixed hypercholesterole pierre and hypertriglyceride miaEssential hypertensionScree lincoln PSA (prostate specific antigen) 1 Anay Bradford. [address] [place] [address], [address], [id number] , . tel: [phone] Referring Provider: Sanchez Lopes, [address] [place] [address], [address] . tel:[phone] OFFICE GVGBK-ERU-XYX ANDCHI [facility], [address] [facility], [place], [place], [address] , tel: [phone] [facility] med management (chief complaint)a cute problem (chief complaint) Herpes zoster without complication 1 Anay Rodriguez [address] [place] [address], [address], [id number] , . tel: [phone] Referring Provider: Sanchez Lopes, [address] [place] [address], [address] . tel:[phone] OFFICE JDALH-GAO-HIA [facility], [address] [facility], [place], [place], [address] , tel: [phone] [facility] med management (chief complaint) Body mass index (BMI) 27.0-27.9, adultMixed hypercholesterole pierre and hypertriglyceride miaEssential hypertensionPre-d iabetesChronic insomniaBPH loc w/o ur obs/LUTS 1 Anay Rodriguez [address] [place] [address], [address], [id number] , . tel: [phone] Referring Provider: Sanchez Lopes, [address] [place] [address], [address] . tel:[phone] [facility], [address], [place], [place], [address] , tel: [phone] [facility] No Information 0 Anay Bradford. [address] [place] [address], [address], [id number] , . tel: [phone] OFFICE SGERO-TQB-GUN [facility], [address] [facility], [place], [place], [address] , tel: [phone] [facility] med management (chief complaint) Body mass index (BMI) 26.0-26.9, adultPre-diabetes Screening PSA (prostate specific antigen)Mixed hypercholesterole pierre and hypertriglyceride miaEssential hypertensionBPH loc w/o ur obs/LUTS 0 Anay Bradford. [address] [place] [address], [id number] , . tel: [phone] Referring Provider: Sanchez Lopes, [address] [place] [address], [address] . tel:[phone] OFFICE IDENK-CWX-AEP ANDCHI [facility], [address] [facility], [place], [place], [address] , tel: [phone] [facility] Dysuria (chief complaint) DysuriaBPH loc w/o ur obs/LUTS 0 Anay Bradford. [address] [place] [address], [id number] , . tel: [phone] Referring Provider: Sanchez Lopes, [address] [place] [address], [address] . tel:[phone] OFFICE MLYRR-UAD-VZZ [facility], [address], [place], [place], [address] , tel: [phone] [facility] med management (chief complaint) Body mass index (BMI) 27.0-27.9, adultMalodorous urinePre-hyperten sionPre-diabetesB PH loc w/o ur obs/LUTSChronic insomnia 9 Anay Bradford. [address] [place] [address], [address], [id number] , . tel: [phone] Referring Provider: Sanchez Lopes, [address] [place] [address], [place], [address] . tel:[phone] [facility], [address] [facility], [place], [place], [address] , tel: [phone] [facility] med management (chief complaint) BPH loc w/o ur obs/LUTSPre-diabe tesPre-hypertensi onFrequency of micturition 9 Anay Bradford. [address] [place] [address], [address], [id number] , [place]. tel: [phone] Referring Provider: Sanchez Lopes, [address] [place] [address], [address] . tel:[phone] [facility], [address] [facility], [place], [address] , [place] tel: [phone] [facility] Qhd-qjcsjhewVyk-d ypertensionBPH loc w/o ur obs/LUTSAnnual physical exam 8 Anay Bradford. [address] [place] [address], [address], [id number] , [place]. tel: [phone] Referring Provider: Sanchez Lopes, [address] [place] [address], [address] . tel:[phone] [facility], [address] [place] [address], [id number] , tel: [phone] [facility] Pre-hypertensionP re-diabetesD[facility]in [facility] 8 Moshe Sage. [address] [place] [address], [id number] , . tel: [phone] Referring Provider: Sanchez Lopes, [address] [place] [address], [place], [address] . tel:[phone] [facility], [address], [place], [place], [address] , [place] tel: [phone] [facility] Dizziness 201 8 Moshe Sage. [address] [place] [address], [id number] , . tel: [phone] Referring Provider: Sanchez Lopes, [address] [place] [address], [place], [address] . 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) COVID19 Vaccine, 0.3mL per dose, 2 doses, administered 21 days apart administered Note: [facility]: Other Registry Pfizer-BioNTech COVID19 Vaccine, 0.3mL per dose, 2 doses, administered 21 days apart administered Source: Source Unspe cified Pfizer-BioNTech COVID19 Vaccine, 0.3mL per dose, 2 doses, administered 21 days apart administered Source: Source Unspe cified Fluzone High-Dose, high dose , preservative free administered Note: [facility] ; Source: Other Provider Fluzone Quad, preservative free, split virus, 0.5mL dosage administered Source: New Immunization Record Pneumococcal polysaccharide PPV23 administered Source: New Immuniza tion Record Fluzone Quad, split virus, 0.5mL dosage administered Source: New Immuniza tion Record Zoster administered Source: Source Unspecified Pneumococcal conjugate PCV 13 administere d Source: Source Unspecified Payers Payer name Insurance type Covered constitution party ID Authoriza tion(s) [employer] MB [id number] [employer] MB [id number] HUMANA MDCR PPO MB [id number] [employer] MDCR PPO MB [id number] [employer] MDCR PPO MB [id number] Social History Type Description Quantity Date Captured Comments Alcohol Use Details Unknown Caffeine Use Details Unknown Tobacco Use Status No Information Smoking Status No Information Sex Male Sexual Orientation Straight or heterosexual Gender Identity Male Chief Complaint And Reason For Visit No Information Reason For Referral Reason For Referral No Information Plan Of Treatment Date Type Action Status Goal Dietary manageme nt education, guidance, and counseling completed Goal Dietary manageme nt education, guidance, and counseling completed Goal Dietary manageme nt education, guidance, and counseling completed Goal Dietary manageme nt education, guidance, and counseling completed Goal Dietary manageme nt education, guidance, and counseling completed Goal Dietary manageme nt education, guidance, and counseling completed Goal Dietary manageme nt education, guidance, and counseling completed Referral Referred To: [place] [address] [facility]
[address] [place], [phone] Ordered: Referrals: Neurology. Dudley Mcdaniels MD. Evaluation/diagnostic/treatment - Level 3 Appointment date/timeframe: 02/21/2023 ordered Referral Referred To: [place] [id number] [facility]
[address] [place], [place], [phone] Ordered: Referrals: Cardiology. Randolph Cristina MD. Evaluation/diagnostic/treatment - Level 3 Appointment date/timeframe: 12/17/2022 ordered Referral Referred To: Randolph Cristina [address] [place], [place], [phone] Ordered: Referrals: Cardiology. Randolph Cristina. Evaluation/diagnostic/treatment - Level 3 Appointment date/timeframe: 09/27/2022 ordered Referral Ordered: X-RAY SPINE, CERVICAL, 2 Or 3 VIEWS ordered Appointment Parviz Barger BOOKED History Of Present Illness Encounter Date Complaint History Of Prese nt Illness med management Here for follow up on chronic medical conditions.Chronic a-fib Controlled VR, asxMixed hypercholesterolemia Advised on hypercholesterolemia. Watch diet, stay active.Chronic systolic heart failure Patient is stable with current med, denies ill effects, reports good compliance.Pre-diabetesdiscussed diet and exerciseLong term current use of anticoagulantno bleedingHistory of CVA (cerebrovascular accident)asx preventive exam Men's preventive visit. Patient is on a healthy diet. The patient has no weight gain/loss. Marital status: . Concern(s)/Requests Detail: Here for CPE. Relevant history is negative for tobacco use, passive vaping exposure, alcohol use. med management Here for follow up on chronic medical conditions.Chronic a-fib controlled rateHistory of CVA (cerebrovascular accident)asxChronic systolic heart failurePatient is stable with current med, denies ill effects, reports good compliance.no bleeding on anticoagulantsMixed hypercholesterolemiaAdvised on hypercholesterolemia. Watch diet, stay active.Essential hypertension Advised to continue current medications. Monitor BP regularly. Advised on DASH diet and regular exercises as natural ways to help lower blood pressure. Patient encounter Here for follo w up on chronic medical conditions.Essential hypertensionNormotensive on current txChronic a-fib Controlled VR. On BT - had hematuria and w/u showed UTI - seen at [facility] ED then [facility] - received abx which cleared sx. Mixed hypercholesterolemiaOn statin, no issues with usePrediabetesAware, watching diet better now preventive exam Men's preventive visit. Patient is on a healthy diet. The patient has no weight gain/loss. Marital status: . Concern(s)/Requests Detail: Here for CPE, med issues. Relevant history is negative for tobacco use, passive vaping exposure, alcohol use. Hospital Follow-Up The patient w as seen today for a hospital follow- up visit. Details regarding this most recent admission include: 82 y/o M here to f/u from [facility] 01/10/23Patient reported to hospital due to blurred vision and NAVARRETE. Found to have imaging consistent w/ CVA right parieto-occipital region. He had been prescribed Eliquis for paroxysmal afib; however, there was concern he was taking medication regularly. Cardiology, Dr. Cristina, was consulted and patient dx w/ aflutter - started on amiodarone and converted to NSR. Today, patient denies any residual sx and is doing well. He has not yet made his f/u appts w/ cardiology and neurology. He is taking his Eliquis regularly and aware of increased risk of CVA if he is not compliant. Patient encounter Here for follo w up on chronic medical conditions.Chronic systolic heart failure Asymptomatic now. Breathing at baseline, no CPPrediabetesWeight is stable, eating healthyMixed hypercholesterolemia Advised on hypercholesterolemia. Watch diet, stay active.Essential hypertensionNormotensive on current medAfib, asx, not feeling any symptoms. Patient encounter Reviewed hospi yamileth notes including testing and lab work up. Medications reconciled with patient. All questions answered to patient's satisfaction.Bruno exhausted and ended up going to the ED and was found to be in aflutter. Cardioversion done and started on Eliquis and Metoprolol. Thought to have UTI but UA was normal. Blood cultures were done and one in 4 bottles ended up being positive for G neg coccobacilli and was reported to the office today. He is currently not on any antibiotic. preventive exam Men's preventive visit. Patient is on a healthy diet. The patient has no weight gain/loss. Marital status: . Concern(s)/Requests Detail: Here for CPE. Tingling on left neck x 2 months. Relevant history is negative for tobacco use, passive vaping exposure, alcohol use. med management Here for follow up on chronic medical conditions.Essential hypertension Advised to continue current medications. Monitor BP regularly. Advised on DASH diet and regular exercises as natural ways to help lower blood pressure.Mixed hypercholesterolemia Advised on hypercholesterolemia. Watch diet, stay active. Continue current treatment.Pre-diabetes Discussed diet and exercise med management acute problem Chief complaint: rash.Symptoms started 1 days ago; are mild; occur constantly; are stable. noted rash on left buttock after his shower yesterday. Denies itching, burning. med management Here for follow up on chronic medical conditions.Essential hypertension Blood pressure control should be less than 130/80 on most occasions. Monitoring is important to see trends. Advised logging BP.Low salt diet is very helpful along with regular cardiovascular exercises, adequate water intake and appropriate restful sleep as these have shown to naturally help decrease BP. Blood tests should be done at least once yearly to see effects of hypertension such as possible deterioration of kidney function as well as to monitor effects of medications.Good blood pressure control is needed to avoid and reduce potential end-organ damage.Patient verbalized understanding.Mixed hypercholesterolemia Advised on hypercholesterolemia. Watch diet, stay active.BPH Tamsulosin causing occasional dizziness. Likely orthostatic hypotension. Advised to take time getting up and get his bearings before going. Hydrate well. Benefitting well from use of med so he does not want to stop med.Pre-diabetesDiscussed diet and exerciseChronic insomnia Discussed good sleep hygiene med management BPH Flomax has h elped significantly. denies ill effectsEssential hypertension Monitor BP regularly. Advised on DASH diet and regular exercises as natural ways to help lower blood pressure.Mixed hypercholesterolemia Advised on hypercholesterolemia. Watch diet, stay active.Pre-diabetes recheck A1C, he is doing good with diet and exercise Dysuria Reports dysuria ongoing intermittently x 1 month. States also has frequency, hesitancy, nocturia and incontinence. Previously was on Flomax but he self d/cd this several months ago. Did not put two and two together but noted worsening symptoms from 6 months ago. No fever or chills. Reports some hematuria as well, unable to give urine. med management Here for follow up on chronic medical conditions.Malodorous urineno UTI, advised on adequate hydrationPre-hypertension BP good. Monitor periodicallyPre-diabetesReviewed BW, WNL. Advised on healthy eating habits.BPH Not bothersome.Chronic insomnia Advised on trying melatonin. Call with updates PRN. med management Here for follow up on chronic medical conditions.BPHgetting nocturia and frequency, Med discussed. Rx sentFrequency of micturitionUA negative, hydrate well.Pre-diabetes discussed diet and exercisePre-hypertension Monitor BP regularly. Advised on DASH diet and regular exercises as natural ways to help lower blood pressure. Functional Status Date Functional Assessmen t No Information Instructions Date Instruction Additional Infor caroline asx Related to Histo ry of CVA (cerebrovascular accident) Advised on hyperchol esterolemia. Watch diet, stay active. Related to Mixed hypercholesterolemia and hypertriglyceridemia no bleeding Related to alf current use of anticoagulant discussed diet and exercise Rela jean-pierre to Pre-diabetes Controlled VR Related to Chron ic a-fib Patient is stable wi th current med, denies ill effects, reports good compliance. 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 Explained current BMI and goal BMI and ways to reach goal Body Mass index discussed. Explained current BMI and goal BMI and ways to reach goal Related to Body mass index [BMI] 26.0-26.9, adult Controlled VR Related to Chron ic a-fib diet and exercise discussed Rela jean-pierre to Pre-diabetes Advised on hyperchol esterolemia. Watch diet, stay active. Related to Mixed hypercholesterolemia and hypertriglyceridemia Patient is stable wi th current med, denies ill effects, reports good compliance. Related to Chronic systolic heart failure stopped Flomax. 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 Immunization and recommended screenings reviewed with patient Related to Annual physical exam Dietary management e ducation, guidance, and counseling Related to Body mass index (BMI) 26.0-26.9, adult Advised to continue current medications. Monitor BP regularly. Advised on DASH diet and regular exercises as natural ways to help lower blood pressure. Related to Essential hypertension Advised on hyperchol esterolemia. Watch diet, stay active. Related to Mixed hypercholesterolemia and hypertriglyceridemia Patient is stable wi th current med, denies ill effects, reports good compliance. Related to Chronic systolic heart failure no bleeding Related to alf current use of anticoagulant asx Related to Histo ry of CVA (cerebrovascular accident) controlled rate, asx Related to Chronic a-fib Preventive care disc ussed. Immunization and recommended screenings reviewed with patient Related to Annual physical exam Body Mass index disc ussed. Explained current BMI and goal BMI and ways to reach goal Body Mass index discussed. Explained current BMI and goal BMI and ways to reach goal Related to Body mass index [BMI] 26.0-26.9, adult completing abx, tracy turia has cleared Related to Recent urinary tract infection recent hematuria lik geneva compounded by UTI. 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 Monitor BP regularly. Advised on DASH diet and regular exercises as natural ways to help lower blood pressure. Related to Essential hypertension Advised on hyperchol esterolemia. Watch diet, stay active. Related to Mixed hypercholesterolemia and hypertriglyceridemia Controlled VR Related to Chron ic a-fib Dietary management e ducation, guidance, and counseling Related to Body mass index (BMI) 26.0-26.9, adult Regular rhythm today in officeTolerating amiodarone wellContinue Charisse crain/ Dr. Ny [facility] Electrophysiology - [id number] [facility] [id number] [facility] [place], [place] [address]K[place]: Related to Paroxysmal atrial flutter No residual symptoms Continue Charisse crain/ Dr. 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 Monitor BP regularly. Advised on DASH diet and regular exercises as natural ways to help lower blood pressure. Related to Essential hypertension recheck A1C. Weight is stable, eating healthy Related to Prediabetes Advised on hyperchol esterolemia. Watch diet, stay active. Related to Mixed hypercholesterolemia and hypertriglyceridemia Breathing at baseline, no CP Rel ated to Chronic systolic heart failure 1 out of 4 bottles f rom recent hospitalization grew G neg coccobacilli. Discussed and will tx with oral abx. Related to Positive blood culture On Eliquis and Metop rolol, seeing Dr. Cristina Related to Atrial fibrillation status post cardioversion In NSR now, Successf ul cardioversion - placed on Eliquis and Metoprolol and tolerating. Will see Dr. Cristina next week. Related to Atrial flutter, unspecified type Body Mass index disc ussed. Explained current BMI and goal BMI and ways to reach goal Body Mass index discussed. Explained current BMI and goal BMI and ways to reach goal Related to Body mass index [BMI] 28.0-28.9, adult Get Xray, more than likely arthritic in nature. NSAIDS OTC PRN discussed Related to Cervical pain Advised to continue current medications. Monitor BP regularly. Advised on DASH diet and regular exercises as natural ways to help lower blood pressure. Related to Essential hypertension Advised on hyperchol esterolemia. Watch diet, stay active. Continue current treatment. Related to Mixed hypercholesterolemia and hypertriglyceridemia Preventive care disc ussed. Immunization and recommended screenings reviewed with patient Related to Annual physical exam Discussed diet and exercise Rela jean-pierre to Prediabetes Dietary management e ducation, guidance, and counseling Related to Body mass index (BMI) 28.0-28.9, adult Urinary Incontinence Prescribed activity/ exercise education Related to Body mass index (BMI) 28.0-28.9, adult Fall Risk Prevention Discussed diet and exercise Rela jean-pierre to Pre-diabetes Advised on hyperchol esterolemia. Watch diet, stay active. Continue current treatment. Related to Mixed hypercholesterolemia and hypertriglyceridemia check PSA with BW Related to Scr eening PSA (prostate specific antigen) Advised to continue current medications. Monitor BP regularly. Advised on DASH diet and regular exercises as natural ways to help lower blood pressure. Related to Essential hypertension Rx Valtrex, avoid ma nipulation. Discussed and verbalized understanding. Related to Herpes zoster without complication Tamsulosin causing o ccasional dizziness. Likely orthostatic hypotension. Advised to take time getting up and get his bearings before going. Hydrate well. Benefitting well from use of med so he does not want to stop med. Related to BPH loc w/o ur obs/LUTS Discussed good sleep hygiene Rel ated to Chronic insomnia Body Mass index disc ussed. Explained current BMI and goal BMI and ways to reach goal Related to Body mass index (BMI) 27.0-27.9, adult Advised on hyperchol esterolemia. Watch diet, stay active. Related to Mixed hypercholesterolemia and hypertriglyceridemia Discussed diet and exercise Rela jean-pierre to Pre-diabetes Blood pressure contr ol should be less than 130/80 on most occasions. Monitoring is important to see trends. Advised logging BP.Low salt diet is very helpful along with regular cardiovascular exercises, adequate water intake and appropriate restful sleep as these have shown to naturally help decrease BP. Blood tests should be done at least once yearly to see effects of hypertension such as possible deterioration of kidney function as well as to monitor effects of medications.Good blood pressure control is needed to avoid and reduce potential end-organ damage.Patient verbalized understanding. Related to Essential hypertension Prescribed activity/ exercise education Related to Body mass index (BMI) 27.0-27.9, adult Dietary management e ducation, guidance, and counseling Related to Body mass index (BMI) 27.0-27.9, adult Fall Risk Prevention Urinary Incontinence recheck A1C, he is el vickers with diet and exercise Related to Pre-diabetes Flomax has helped significantly. Related to BPH loc w/o ur obs/LUTS Body Mass index disc ussed. Explained current BMI and goal BMI and ways to reach goal Related to Body mass index (BMI) 26.0-26.9, adult check PSA with next BW Related t o Screening PSA (prostate specific antigen) Advised on hyperchol esterolemia. Watch diet, stay active. Related to Mixed hypercholesterolemia and hypertriglyceridemia Monitor BP regularly . Advised on DASH diet and regular exercises as natural ways to help lower blood pressure. Related to Essential hypertension Dietary management e ducation, guidance, and counseling Related to Body mass index (BMI) 26.0-26.9, adult Restart Flomax. Disc ussed med, verbalized understanding. Related to BPH loc w/o ur obs/LUTS Treat as UTI - get u rine sample, unable to provide so given order for it. hydrate well. Related to Dysuria Fall Risk Prevention Urinary Incontinence BP good. Monitor periodically Re lated to Pre-hypertension Advised on trying me latonin. Call with updates PRN. Related to Chronic insomnia Body Mass index disc ussed. Explained current BMI and goal BMI and ways to reach goal Related to Body mass index (BMI) 27.0-27.9, adult no UTI, advised on a dequate hydration Related to Malodorous urine Not bothersome. Related to BPH l oc w/o ur obs/LUTS Reviewed BW, WNL. Ad vised on healthy eating habits. Related to Pre-diabetes Dietary management e ducation, guidance, and counseling Related to Body mass index (BMI) 27.0-27.9, adult Prescribed activity/ exercise education Related to Body mass index (BMI) 27.0-27.9, adult getting nocturia and frequency, Med discussed. Rx sent Related to BPH loc w/o ur obs/LUTS UA negative, hydrate well. Relat ed to Frequency of micturition Monitor BP regularly . Advised on DASH diet and regular exercises as natural ways to help lower blood pressure. Related to Pre-hypertension discussed diet and exercise Rela jean-pierre to Pre-diabetes Urinary Incontinence Fall Risk Prevention Assessments Type Assessment Date assessment Paroxysmal atrial flutter Patient Care Teams Name Effective Dates (start - stop) Status Members No Information
--- OUTSIDE RECORDS SUMMARY | 2025-01-16 15:35 | XMS_ITS | Encounter Summary ---
Author Organization [facility] Address 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
--- OUTSIDE RECORDS SUMMARY | 2025-01-16 15:35 | XMS_ITS | Encounter Summary ---
Author Organization [facility] Address [address] [place] [address] Care Team Providers Care Train Control Electronic Technician Name Role Phone Sanchez Cueva MD Primary Care Provider [phone] Reason for Visit * Reason Onset Date Comments [place] flutter, Diltiazem 09/12/2022 Spoke w /Homar at Dr. Duron's exchange Encounter Details Date Type Department Care Team (Late st Contact Info) Description 09/12/2022 Telephone [facility] Admitting [id number] [place] [address] [place] [address] [place] [address] [place] flutter, Diltiazem (Spoke w/Homar at Dr. 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 No / Unsure 09/12/2022 1:45 PM [employer] documented as of this encounter Plan of Treatment Not on file documented as of this encounter Visit Diagnoses Not on filedocumented in this encounter Additional Health Concerns Infection Onset Date Last Indicated Resolved Time R/O COVID-19 09/12/2022 09/12/2022 09/12/2022 3:09 PM [employer] R/O Respiratory 05/17/2023 05/17/2023 05/17/2023 8 :56 AM CDT documented as of this encounter Care Teams Train Control Electronic Technician Relationship Specialty [place] [address] [address] [address] PCP - General Family Practice 02/26/19 documented as of this encounter
--- NOTE | 2025-01-16 16:28 | ED.GENADULT ---
HPI - General Adult General Chief complaint: Unspecified Stated complaint: head problems Time Seen by Provider: 01/16/25 16:29 Focused HPI: Patient is an 84-year-old male who presents the ED with report confusion and problems with his equilibrium. Patient reports he has been feeling as though his equilibrium in his hearing is off. States he has trouble ambulating at times. He notes he fell 1 x last week but did not injury himself or hit his head. He does report a knot to his R posterior head for the past few months, but denies pain with this. has had trouble sleeping for the past 2 months. Has been on trazodone, but denies improvement with this. States he will count numbers to try to fall asleep, but will end up counting for hours at a time, counting 9, 10, 11, 12 repetitively. Hx of aneurysm and brain CA in his mother. Denies dizziness, lightheaded, vision changes, focal weakness or numbness, headaches GENERAL: Well-appearing, well-nourished, and in no acute distress. HEAD: Normocephalic, atraumatic. CHEST: Clear to auscultation. ?No respiratory distress. HEART: Regular rate and rhythm.? NEURO: ?Alert and oriented x3. Equal retail pharmacy merchandiser strength bilaterally. Strength 5 of 5 in upper/lower extremities bilaterally. No pronator drift. No focal deficits. Patient screened in triage and initial orders placed.? ?Additional care and disposition to be based upon?diagnostic testing and treatment. Source: patient Mode of arrival: ambulatory Limitations: no limitations Related Data Home Medications ?Medication ?Instructions ?Recorded ?Confirmed ?Last Taken ?Type apixaban 5 mg tablet (Eliquis) 5 mg PO BID 06/12/24 06/12/24 Unknown History atorvastatin 40 mg tablet 40 mg PO DAILY 06/12/24 06/12/24 Unknown History tamsulosin 0.4 mg capsule 0.4 mg PO DAILY 06/12/24 06/12/24 Unknown History Allergies Allergy/AdvReac Type Severity Reaction Status Date / Time Penicillins Allergy Mild Verified 03/31/11 11:25 [facility] Past Medical History Medical History (Updated 01/17/25 @ 09:14 by Hope Connors PA-C) Hyperlipidemia BPH (benign prostatic hyperplasia) Atrial fibrillation Family History Family History (Updated 06/12/24 @ 04:21 by Jazmyn Yi RN) Mother Brain aneurysm Father COPD (chronic obstructive pulmonary disease) Social History Social History Smoking status: Never smoker Alcohol intake: never Substance use: never Do You Feel Safe in your Home?: Yes Lack of Transportation: No Lack of Food: Never True Current Housing: I Have Housing Concerned About Future Housing: No Difficulty Paying Gas/Electric Bills: No Difficulty Paying for Meds: No Currently Unemployed: No Education: Grade School Difficulty w/ Childcare or Family Care: No Spiritual care concerns: No Course Vital Signs Vital signs: Vital Signs Temperature 97.6 F 01/16/25 14:07 Pulse Rate 61 01/16/25 14:07 Respiratory Rate 16 01/16/25 14:07 Blood Pressure 108/60 01/16/25 14:07 Pulse Oximetry 98 01/16/25 14:07 Oxygen Delivery Room Air 01/16/25 14:07 Temperature 97.6 F 01/16/25 14:07 Pulse Rate 61 01/16/25 14:07 Respiratory Rate 16 01/16/25 14:07 Blood Pressure 108/60 01/16/25 14:07 Pulse Oximetry 98 01/16/25 14:07 Oxygen Delivery Room Air 01/16/25 14:07 Medical Decision Making MDM Narrative Medical decision making narrative: MSE by REGINE in triage. Patient left facility after initial MSE without further work up or evaluation. Vital Signs Vital Signs: Vital Signs Temperature 97.6 F 01/16/25 14:07 Pulse Rate 61 01/16/25 14:07 Respiratory Rate 16 01/16/25 14:07 Blood Pressure 108/60 01/16/25 14:07 Pulse Oximetry 98 01/16/25 14:07 Oxygen Delivery Room Air 01/16/25 14:07 Temperature 97.6 F 01/16/25 14:07 Pulse Rate 61 01/16/25 14:07 Respiratory Rate 16 01/16/25 14:07 Blood Pressure 108/60 01/16/25 14:07 Pulse Oximetry 98 01/16/25 14:07 Oxygen Delivery Room Air 01/16/25 14:07 Discharge Plan Discharge Clinical Impression: Difficulty sleeping, Unsteady gait Patient Disposition: Elopement After Seen by Prov Patient Language: Gibraltarian Prescriptions: No Action atorvastatin 40 mg tablet 40 mg PO DAILY tamsulosin 0.4 mg capsule 0.4 mg PO DAILY Eliquis 5 mg tablet 5 mg PO BID metoprolol succinate 25 mg tablet extended release 24 hr 25 mg PO DAILY Qty: 30 1RF ciprofloxacin HCl [Cipro] 250 mg tablet 250 mg PO Q12H Qty: 6 0RF Rx Instructions: Start on 06/14/24. Follow-up/Referrals: UNKNOWN,DOCTOR [Primary Care Provider] -
--- OUTSIDE RECORDS SUMMARY | 2025-01-16 19:07 | XMS_ITS | Encounter Summary ---
Author Organization [facility] Address [address] [place] [address] Care Team Providers Care Floral Specialist Name Role Phone Sanchez Cueva MD Primary Care Provider [phone]- [phone] Reason for Visit * Reason Onset Date Comments [place] flutter, Diltiazem 09/12/2022 Spoke w /Homar at Dr. Duron's exchange Encounter Details Date Type Department Care Team (Late st Contact Info) Description 09/12/2022 Telephone [facility] Admitting [id number] [place] [address] [place] [address] [place] [address] [place] flutter, Diltiazem (Spoke w/Homar at Dr. 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 No / Unsure 09/12/2022 1:45 PM WEDDING MAKEUP ARTIST documented as of this encounter Plan of Treatment Not on file documented as of this encounter Visit Diagnoses Not on filedocumented in this encounter Additional Health Concerns Infection Onset Date Last Indicated Resolved Time R/O COVID-19 09/12/2022 09/12/2022 09/12/2022 3:09 PM WEDDING MAKEUP ARTIST R/O Respiratory 05/17/2023 05/17/2023 05/17/2023 8 :56 AM CDT documented as of this encounter Care Teams Floral Specialist Relationship Specialty [place] [address] Mary Ellen Iqbal [address] [address] PCP - General Family Practice 02/26/19 documented as of this encounter
--- OUTSIDE RECORDS SUMMARY | 2025-01-16 19:07 | XMS_ITS | Clinical Summary ---
Author Organization [facility] [employer] Address [address] [place] [address] Care Team Providers Care Nuclear Waste Process Operator Name Role Phone Sanchez Cueva MD Primary Care Provider [phone]- [phone] Allergies Active Allergy Reactions Criticality Noted Date [...] Acute ischemic right posterior cerebral artery ( HEDIS MANAGER) stroke 01/06/2023 Atrial flutter with rapid ventricular response 1 11/12/2021 Atrial fibrillation 09/12/2022 Overview (09/13/2022): Added automatically from request for surgery [id number] Immunizations Immunization Administration Dates Next Due (PREVNAR [...] 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 Procedure Code(s): --- Professional --- 10377, Colonoscopy, flexible; diagnostic, including collection of specimen(s) by brushing or washing, when performed (separate procedure) CPT copyright 2016 [employer]. All rights reserved. The codes documented in this report are preliminary and upon cpc coder review may be revised to meet current compliance requirements. Wendy Scott MD 03/05/2019 10:48:57 AM This report has been signed electronically. Number of Addenda: 0 [id number] [place] [address] Wendy Scott MD GI PROCEDURE ORDERABLES Final Re sult from Last 3 Months or Most Recently Relevant to Health Maintenance [place] [address] [id number] Advance Directives For more information, please contact: [phone] * Full Code (Latest Code Status on File) Date Activated Date Inactivated Comments 01/07/2023 12:04 AM 01/10/2023 7:53 PM * Full Code Date Activated Date Inactivated Comments 09/27/2022 4:03 PM 09/27/2022 10:13 PM * Full Code Date Activated Date Inactivated Comments 09/12/2022 4:52 PM 09/14/2022 5:33 PM Care Teams Nuclear Waste Process Operator Relationship Specialty [place] [address] [address] PCP - General Family Practice 02/26/19
--- OUTSIDE RECORDS SUMMARY | 2025-01-16 19:07 | XMS_ITS | Continuity of Care Document ---
Author Organization [employer] Address [address] [place] [address] Phone Care Team Providers Care Sap Functional Analyst Name Role Phone Sanchez Cueva MD Unavailable [...] QD - Active Procedures Procedure Date OFFICE [id number]-[id number] BODY MASS INDEX DOCD SYST BP LT [...] HG Pt inelig neg scrn depres OFFICE [id number]-[id number]-[id number] BODY MASS INDEX DOCD SYST BP LT [...] depres Pt inelig neg scrn depres OFFICE [id number]-[id number] BODY MASS INDEX DOCD SYST BP LT 130 MM HG DIAST BP < 80 MM HG DSCHRG MED/CURRENT MED MERGE COMPREHEN METABOLIC PANEL CMP 2 HEMOGLOBIN A1C HGA1C, GLYCO LIPID PANEL ROUTINE VENIPUNCTURE OFFICE JHOTU-USJ-[id number] BODY MASS INDEX DOCD SYST BP LT [...] VENIPUNCTURE PSA, TOTAL, SCREENING MEDICARE ONLY OFFICE [id number]-ZFR-[id number] BODY MASS INDEX DOCD SYST BP LT 130 MM HG DIAST BP < 80 MM HG OFFICE LRIUJ-YZU-KOCZGSGZ BODY MASS INDEX DOCD FALL RISK ASSESSMENT DOC'D PRES/ABSN URINE INCON ASSESS Pt inelig neg scrn depres OFFICE FGYAM-NFM-TBICXPJI BODY MASS INDEX DOCD SYST BP LT 130 MM HG DIAST BP < 80 MM HG OFFICE PFBOW-QPV-YUJKHUJJ BODY MASS INDEX DOCD SYST BP LT 130 MM HG DIAST BP < 80 MM HG FALL RISK ASSESSMENT DOC'D PRES/ABSN URINE INCON ASSESS Pt inelig neg scrn depres OFFICE PBCKX-NUG-SIXHTCHO BODY MASS INDEX DOCD SYST BP >= 140 MM HG6 IT DIAST BP 80-89 MM HG Admin influenza virus vac FLU VAC NO PRSV 4 JESS, 0.5mL DOSAGE URINALYSIS, DIPSTICK (UA) - Office Lab O OFFICE IBNVL-WOF-FKANLVOM BODY MASS INDEX DOCD SYST BP LT [...] Diagnoses Date Provider Providers Copied on Encounter [facility], [address], [place], [place], [address] , tel: [phone] [facility] Primary Care [facility] Paroxysmal atrial flutter 5 Anay Bradford[address] [place] [address], [id number] , [place]. tel: [phone] OFFICE YONXU-OTF-ANW PAUL [facility], [address], [place], [place], [address] , [place] tel: [phone] [facility] Primary Care [facility] med management (chief complaint) Chronic a-fibMixed hypercholesterole pierre and hypertriglyceride miaChronic systolic heart failurePre-diabet esLong term current use of anticoagulantHist ory of CVA (cerebrovascular accident) 4 Anay Bradford. [address] [facility], [address], [id number] , . tel: [phone] Referring Provider: Sanchez Lopes, [address] [place] [address], [address] . tel:[phone] [facility], [address], [place], [place], [address] , tel: [phone] [facility] Primary Care [facility] Atrial fibrillation, unspecified type 4 Anay Rodriguez [address] [place] [address], [id number] , . tel: [phone] [facility], [address], [place], [place], [address] , tel: [phone] [facility] Primary Care [facility] No Information 4 Anay Bradford. [address] [place] [address], [id number] , [place]. tel: [phone] [facility], [address], [place], [place], [address] , tel: [phone] [facility] Mixed hyperlipidemia 4 Anay Rodriguez [address] [place] [address], [id number] , [place]. tel: [phone] Referring Provider: Sanchez Lopes, [address] [place] [address], [address] . tel:[phone] PREVENTATIVE- EST: 65 & OVER [facility], [address], [id number] , tel: [phone] [facility] Primary Care [facility] preventive exam (chief complaint) Body mass index [BMI] 26.0-26.9, adultAnnual physical examHistory of CVA (cerebrovascular accident)terminal manager current use of anticoagulantMixe d hypercholesterole pierre and hypertriglyceride miaChronic systolic heart failureChronic i-eyrHfr-wkbqluwd Orthostatic hypertension 4 Anay Bradford. [address] [place] [address], [id number] , [place]. tel: [phone] Referring Provider: Sanchez Lopes, [address] [place] [address], [address] . tel:[phone] [facility], [address], [place], [place], [address] , tel: [phone] [facility] Primary Care [facility] Atrial fibrillation, unspecified type 4 Anay Bradford. [address] [place] [address], [id number] , . tel: [phone] OFFICE QIFSP-TJM-OQI PAUL [facility], [address], [place], [place], [address] , tel: [phone] [facility] Care [facility] med management (chief complaint) Chronic a-fibHistory of CVA (cerebrovascular accident)Chronic systolic heart failureLong term current use of anticoagulantMixe d hypercholesterole pierre and hypertriglyceride miaEssential hypertension 3 Anay Bradford. [address] [place] [address], [id number] , . tel: [phone] Referring Provider: Sanchez Lopes, [address] [place] [address], [address] . tel:[phone] [facility], [address] [facility], [place], [place], [address] , tel: [phone] [facility] Mixed hyperlipidemia 3 Anay Bradford. [address] [place] [address], [id number] , . tel: [phone] Referring Provider: Sanchez Lopes, [address] [place] [address], [address] . tel:[phone] PREVENTATIVE- EST: 65 & OVER [facility], [address] [facility], [place], [place], [address] , tel: [phone] [facility] Primary Care [facility] Patient encounter (chief complaint)p reventive exam (chief complaint) Body mass index [BMI] 26.0-26.9, adultEssential hypertensionChron ic a-fibMixed hypercholesterole pierre and hypertriglyceride miaPrediabetesRec ent urinary tract infectionLong term current use of anticoagulantAnnu al physical examHistory of fallingEncounter for screening for other disorderEncounter for screening for depressionEncount er for examination of blood pressure without abnormal findings 3 Anay Bradford. [address] [place] [address], [address] [place] [address] , . tel: [phone] Referring Provider: Sanchez Lopes, [address] [place] [address], [address] [place] [address] . tel:[phone] [facility], [address], [place], [address] , tel: [phone] [facility] History of CVA (cerebrovascular accident) 3 Anay Bradford. [address] [place] [address], [id number] , . tel: [phone] OFFICE TTHRB-ERJ-SUY PAUL [facility], [address], [place], [address] , tel: [phone] [facility] Primary Care [facility] Hospital Follow-Up (chief complaint) Paroxysmal atrial flutterHistory of CVA (cerebrovascular accident)Body mass index [BMI] 26.0-26.9, adult 3 Moshe Sage. [address] [place] [address], [id number] , . tel: [phone] Referring Provider: Sanchez Lopes, [address] [place] [address], [address] . tel:[phone] [facility], [address], [place], [address] , tel: [phone] Care Management No Information 3 Anay Bradford. [address] [place] [address], [id number] , . tel: [phone] Referring Provider: Sanchez Lopes, [address] [place] [address], [address] . tel:[phone] [facility], [address], [place], [place], [address] , tel: [phone] [facility] Atrial flutter, unspecified type 3 Anay Bradford. [address] [place] [address], [address], [id number] , [place]. tel: [phone] [facility], [address], [place], [place], [address] , tel: [phone] [facility] Mixed hyperlipidemia 2 Anay Bradford. [address] [place] [address], [address], [id number] , [place]. tel: [phone] Referring Provider: Sanchez Lopes, [address] [place] [address], [address] . tel:[phone] OFFICE EMHWD-CJJ-KVV PAUL [facility], [address] [place] [address], [id number] , tel: [phone] [facility] Patient encounter (chief complaint) Chronic systolic heart failurePrediabete sMixed hypercholesterole pierre and hypertriglyceride miaEssential hypertensionChron ic a-fibLong term current use of anticoagulant 2 Anay Bradford. [address] [place] [address], [address], [id number] , [place]. tel: [phone] Referring Provider: Sanchez Lopes, [address] [place] [address], [address] . tel:[phone] Transitional Care- First 7 Days Of Discharge [facility], [address], [place], [place], [address] , tel: [phone] [facility] Patient encounter (chief complaint) Atrial flutter, unspecified typeAtrial fibrillation status post cardioversionPosi tive blood culture 2 Anay Bradford. [address] [place] [address], [address], [id number] , . tel: [phone] Referring Provider: Sanchez Lopes, [address] [place] [address], [address] . tel:[phone] [facility], [address], [place], [place], [address] , tel: [phone] [facility] Atrial flutter, unspecified type 2 Anay Rodriguez [address] [place] [address], [address], [id number] , . tel: [phone] [facility], [address], [place], [place], [address] , tel: [phone] [facility] Cervicalgia 2 Anay Rodriguez [address] [place] [address], [address], [id number] , [place]. tel: [phone] Referring Provider: Sanchez Lopes, [address] [place] [address], [address] . tel:[phone] PREVENTATIVE- EST: 65 & OVER [facility], [address] [place] [address], [id number] , tel: [phone] [facility] preventive exam (chief complaint) Body mass index [BMI] 28.0-28.9, adultCervical painAnnual physical examEssential hypertensionMixed hypercholesterole pierre and hypertriglyceride miaPrediabetes 2 Anay Rodriguez [address] [place] [address], [address], [id number] , [place]. tel: [phone] Referring Provider: Sanchez Lopes, [address] [place] [address], [address] . tel:[phone] [employer], [address], [place], [place], [address] , tel: [phone] [facility] Prediabetes Jul-0 1 Anay Rodriguez [address] [place] [address], [address], [id number] , . tel: [phone] Referring Provider: Sanchez Lopes, [address] [place] [address], [address] . tel:[phone] OFFICE KYKOF-VUS-GXJ [facility], [address], [place], [place], [address] , tel: [phone] [facility] med management (chief complaint) Pre-diabetesMixed hypercholesterole pierre and hypertriglyceride miaEssential hypertensionScree lincoln PSA (prostate specific antigen) 1 Anay Bradford. [address] [place] [address], [address], [id number] , . tel: [phone] Referring Provider: Sanchez Lopes, [address] [place] [address], [address] . tel:[phone] OFFICE PAEBU[facility]ZLK-NZQ [facility], [address] [facility], [place], [place], [address] , tel: [phone] [facility] med management (chief complaint)a cute problem (chief complaint) Herpes zoster without complication 1 Anay Rodriguez [address] [place] [address], [address], [id number] , . tel: [phone] Referring Provider: Sanchez Lopes, [address] [place] [address], [address] . tel:[phone] OFFICE SGQYZ-WRM-BPE [facility], [address] [facility], [place], [place], [address] , tel: [phone] [facility] med management (chief complaint) Body mass index (BMI) 27.0-27.9, adultMixed hypercholesterole pierre and hypertriglyceride miaEssential hypertensionPre-d iabetesChronic insomniaBPH loc w/o ur obs/LUTS 1 Anay Rodriguez [address] [place] [address], [address], [id number] , . tel: [phone] Referring Provider: Sanchez Lopes, [address] [place] [address], [address] . tel:[phone] [facility], [address], [place], [place], [address] , tel: [phone] [facility] No Information 0 Anay Bradford. [address] [place] [address], [address], [id number] , . tel: [phone] OFFICE PFXKY-RTI-DHB [facility], [address] [facility], [place], [place], [address] , tel: [phone] [facility] med management (chief complaint) Body mass index (BMI) 26.0-26.9, adultPre-diabetes Screening PSA (prostate specific antigen)Mixed hypercholesterole pierre and hypertriglyceride miaEssential hypertensionBPH loc w/o ur obs/LUTS 0 Anay Bradford. [address] [place] [address], [id number] , . tel: [phone] Referring Provider: Sanchez Lopes, [address] [place] [address], [address] . tel:[phone] OFFICE UWXHU-HRX-WCR [facility], [address] [facility], [place], [place], [address] , tel: [phone] [facility] Dysuria (chief complaint) DysuriaBPH loc w/o ur obs/LUTS 0 Anay Bradford. [address] [place] [address], [id number] , . tel: [phone] Referring Provider: Sanchez Lopes, [address] [place] [address], [address] . tel:[phone] OFFICE GOYOL-OET-LQJ [facility], [address], [place], [place], [address] , tel: [phone] [facility] med management (chief complaint) Body mass index (BMI) 27.0-27.9, adultMalodorous urinePre-hyperten sionPre-diabetesB PH loc w/o ur obs/LUTSChronic insomnia 9 Anay Bradford. [address] [place] [address], [address], [id number] , . tel: [phone] Referring Provider: Sanchez Lopes, [address] [place] [address], [place], [address] . [phone] [facility], [address] [facility], [place], [place], [address] , tel: [phone] [facility] med management (chief complaint) BPH loc w/o ur obs/LUTSPre-diabe tesPre-hypertensi onFrequency of micturition 9 Anay Bradford. [address] [place] [address], [address], [id number] , [place]. tel: [phone] Referring Provider: Sanchez Lopes, [address] [place] [address], [address] . tel:[phone] [facility], [address] [facility], [place], [place], [address] , [place] tel: [phone] [facility] Yzm-osirwaijEly-e ypertensionBPH loc w/o ur obs/LUTSAnnual physical exam 8 Anay Bradford. [address] [place] [address], [address], [id number] , [place]. tel: [phone] Referring Provider: Sanchez Lopes, [address] [place] [address], [address] . [phone] [facility], [address] [place] [address], [address] , tel: [phone] [facility] Pre-hypertensionP re-diabetesDizzin community hospital [facility] 8 Moshe Sage. [address] [place] [address], [id number] , . tel: [phone] Referring Provider: Sanchez Lopes, [address] [place] [address], [place], [address] . tel:[phone] [facility], [address], [place], [place], [address] , [place] tel: [phone] [facility] Dizziness 201 8 Moshe Sage. [address] [place] [address], [id number] , . tel: [phone] Referring Provider: Sanchez Lopes, [address] [place] [address], [place], [address] . tel:[phone] Family History Family Member Type Diagnosis Age At Onset Problem (finding) Family history of Aller gies Problem (finding) Family history of Cance r, unknown Problem (finding) Family history of Heari ng deficiency Immunizations Vaccine Date Status Comments Fluzone High-Dose Trivalent, preservative free administered Source: New Immuniza tion Record SHINGRIX (Zoster vaccine recombinant, adjuvanted) administered Note: [facility] ; Source: Other Registry Hobby (Diluent Reconstitute d) COVID19 Vaccine, 0.3mL per [...] high dose , preservative free administered Note: [employer] ; Source: Other Provider Fluzone Quad, preservative free, split virus, 0.5mL dosage administered Source: New Immunization Record Pneumococcal polysaccharide PPV23 administered Source: New Immuniza tion Record Fluzone Quad, split virus, 0.5mL dosage administered Source: New Immuniza tion Record Zoster administered Source: Source Unspecified Pneumococcal conjugate PCV 13 administere d Source: Source Unspecified Payers Payer name Insurance type Covered green party ID Authoriza tion(s) [employer] MB [id number] [employer] MB [id number] HUMANA MDCR PPO MB [id number] HU[employer]NA MDCR PPO MB [id number] HU[employer]NA MDCR PPO MB [id number] Social History Type Description Quantity Date Captured [...] completed Referral [place]: [place] [address] [facility]
[address] [place], [phone] Ordered: Referrals: Neurology. Dudley Mcdaniels MD. Evaluation/diagnostic/treatment - Level 3 Appointment date/timeframe: 02/21/2023 ordered Referral [place]erred To: [place] [address] [facility]
[address] [place], [place], [phone] Ordered: Referrals: Cardiology. Randolph Cristina MD. Evaluation/diagnostic/treatment - Level 3 Appointment date/timeframe: 12/17/2022 ordered Referral Referred To: Randolph Cristina [address] [place], [place], [phone] Ordered: Referrals: Cardiology. Randolph Cristina. Evaluation/diagnostic/treatment - [...] and w/u showed UTI - seen [facility] ED then [facility] - received abx which cleared sx. Mixed [...] 82 y/o M here to f/u from [facility] 01/10/23Patient reported to hospital due to blurred [...] with patient. All questions answered to patient's satisfaction.Racine exhausted and ended up going to the [...] hypercholesterolemia and hypertriglyceridemia no bleeding Related to senior care current use of anticoagulant discussed diet and exercise Rela jean-pierre to Pre-diabetes Controlled VR Related to Chron ic a-fib Patient is stable wi th current med, denies ill effects, reports good compliance. 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 [facility] - [address] [facility] [id number] [facility] [place], [place] [address]Zkuqb: Related to Paroxysmal atrial flutter No residual symptoms Continue Charisse crain/ Dr. 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
--- OUTSIDE RECORDS SUMMARY | 2025-01-16 19:07 | XMS_ITS | Encounter Summary ---
Author Organization [facility] Address [address] [place] [address] Care Team Providers Care Wood Grinder Operator Name Role Phone Sanchez Cueva MD Primary Care Provider [phone]- [phone] Reason for Visit * Reason Onset Date Comments 1st degree AV block w/Marked ST abnormality possible infer 01/07/2023 Minderest Chat sent to Dr Waldemar Cristina's group Encounter Details Date Type Department Care Team (Late st Contact Info) Description 01/07/2023 Telephone [facility] Admitting [address] [place] [address] [place] [address] [place] [address] [address]st degree AV block w/Marked ST abnormality possible infer (Minderest Chat sent to Dr. Cristina's group) Social [...] Coronavirus/COVID-19? No / Unsure 01/06/2023 6:09 PM [facility] documented as of this encounter Plan of Treatment Not on file documented as of this encounter Visit Diagnoses Not on filedocumented in this encounter Additional Health Concerns Infection Onset Date Last Indicated Resolved Time R/O Respiratory 05/17/2023 05/17/2023 05/17/2023 8 :56 AM CDT documented as of this encounter Care Teams Wood Grinder Operator Relationship Specialty [place] [id number] [address] PCP - General Family Practice 02/26/19 documented as of this encounter
== END 2025-01-16 17:40 | disposition left against medical advice (07) ==
LOC: ANHED 19:05
PROVIDERS: Emergency Provider Physician Assistant
DX: G47.9 Sleep disorder, unspecified (principal); R26.9 Unspecified abnormalities of gait and mobility; E78.5 Hyperlipidemia, unspecified; I48.91 Unspecified atrial fibrillation; N40.0 Benign prostatic hyperplasia without lower urinary tract symptoms
CPT/HCPCS: 99281